=== PATIENT | female | born 1945 | race Caucasian/White ===

== ENCOUNTER 2021-04-02 15:19 | Emergency (ER) | payer OTHER ==
--- OUTSIDE RECORDS SUMMARY | 2021-04-02 15:22 | XMS REPORT | Continuity of Care Document ---
:1945 Author Organization [facility] t Address [address] [place] [address] Dr. Eas[address]. [address] [place] [address] Care Team Providers Name Role Phone Ab GRANADOS Primary Care Physician Javad Whalen MD Attending Clinician Olga ALCARAZ Attending Clinician Unavailable Kevan Rodríguez MD Attending Clinician Kennedi SENIOR CATEGORY MANAGER-C Attending Clinician Ab GRANADOS Attending Clinician Suresh GRANADOS Attending Clinician ANALI Admitting Clinician Unavailable Payers Payer Name Policy Type Policy Effective Date Expiration Date Sour ce Number MEDICAREMEDICARE PART [id number] 2012 Ho ludwin A AND 00:00:00 Baptism [id number] 2011- [place] [id number] 2017 Rowan ston OF 00:00:00 Baptism [id number] 2017 -PresentCommercial Problems Condition Condition Condition Status Onset Resolution Last Treating Co mments Source Name Details Category Date Date Treatment Clinician Date Ganglion Ganglion Disease Active [place] on cyst of cyst of 11-07 Methodi volar volar 00:00: st aspect of aspect of 00 right right wrist wrist Rotator Rotator Disease Active Brent cuff cuff 11-07 Methodi strain, strain, 00:00: st right, right, 00 initial initial encounter encounter HLD HLD Disease Active Brent (hyperlipi (hyperlipi 2-28 Me thodi demia) demia) 00:00: st 00 Abnormal Abnormal Disease Active Overview: Pineda mascorro CT of CT of 01-15 Formattin Methodi brain brain 00:00: g of this st 00 note might be different from the original. 12/07/16 6 mm hyperdens ity in medial left cerebellu m 05/13 per neuro to repeat MRI 03/14 Cervical Cervical Disease Active Overview: Pineda mascorro spondylart spondylart -21 Formatt[place] Methodi hritis hritis 00:00: g of this st 00 note might be different from the original. OSH CT 12/14 : moderate DJDj changes HTN HTN Disease Active Overview: [place] (hypertens (hypertens 01-15 Formattin Methodi ion) ion) 00:00: g of this st note might be different from the original. OSh CT 12/14 prominent DJD changes Allergies, Adverse Reactions, Alerts This patient has no known allergies or adverse reactions. Family History Family Member Diagnosis Comments Start Date Stop Date Source Natural father Pituitary Tumor [place] Baptism Natural mother Cancer [facility] thodist Paternal grandmother Arthritis [place] [facility] Social History Social Habit Start Date Stop Date Quantity Comments Source History of tobacco Current smoker Pineda mascorro Baptism use History [facility] Meth odist Alcohol Binge Cigarettes smoked 2020-12-01 2020-12-01 Claudio Baptism current (pack per 00:00:00 00:00:00 day) - Reported Cigarette 2020-12-01 2020-12-01 Claudio Method ist pack-years 00:00:00 00:00:00 Tobacco use and 2020-12-01 2020-12-01 Never used Claudio Ellis ethodist exposure 00:00:00 00:00:00 Alcohol intake 2020-12-01 2020-12-01 Ex-drinker Brent thodist 00:00:00 00:00:00 (finding) History SDOH 2020-11-15 2020-11-15 4 Claudio Meth odist Alcohol Frequency 00:00:00 00:00:00 History SDOH 2020-11-15 2020-11-15 2 Snyder Meth odist Alcohol Std Drinks 00:00:00 00:00:00 Alcohol Comment 2020-11-15 2020-11-15 a day Claudio vegaodist 00:00:00 00:00:00 Sex [birth year] Claudio vegaodist 00:00:00 00:00:00 Smoking Status Start Date Stop Date Source Former smoker 2020-12-01 00:00:00 2020-12-01 00:00:00 Claudio Baptism Medications Ordered Filled Start Stop Current Ordering Indication Dosage Frequency Signature Comments Components Source Medication Medication Date Date Medication? Clinician (SIG) Name Name BEATRICE Yes Take by Rowan hira ES 11-15 mouth. Methodi BOULARDII 14:57: st (PROBIOTIC, 29 S.BOULARDII , ORAL) ascorbic Yes QD Take by Koki n acid, 11-15 mouth Methodi vitamin C, 14:57: daily. st (VITAMIN C 29 WITH ZULEYMA HIPS) 1000 MG tablet extended release CR tablet omega Yes Take by Brent 3-dha-epa-f 11-15 mouth. Method i denilson oil 14:57: st (FISH OIL) 29 1,000 mg (120 mg-180 mg) capsule lecithin Yes Take by Koki n 1,200 mg 11-15 mouth. Methodi capsule 14:57: st 29 aspirin Yes 81mg QD Take 81 mg [place] (ECOTRIN) 11-15 by mouth Method i 81 MG 14:57: daily. st enteric 29 coated tablet TURMERIC, Yes Brent BULK, MISC 11-15 Methodi 14:57: st 29 cyanocobala Yes 1000ug QD Take 1,000 Snyder min 500 MCG 1-19 mcg by Method i tablet 14:57: mouth st 29 daily. glucosamine Yes Take by Rowantyler iniguez sulfate -19 mouth. Methodi (GLUCOSAMIN 14:57: st E) 500 mg 29 tablet zinc Yes 220mg QD Take 220 Snyder sulfate 1-19 mg by Methodi (ZINCATE) 14:57: mouth st 220 (50) mg 29 daily. capsule multivit-mi Yes Take by Rowan hira ns -19 mouth. Methodi no.5/folic 14:57: st acid 29 (ELDERCAPS ORAL) vit C/vit Yes Take by Stiven on D3/E/zinc/e 11-15 mouth. Method i lderberry 14:57: st (AIRBORNE 29 VITS ZINC ELDERBERRY ORAL) acetaminoph 2020- No acute pain 1{tbl} Q4H Take 1-2 Brent en-codeine 11-15 tablets by Ky lobito (TYLENOL 00:00: 23:[address] WITH 00 :00 every 4 CODEINE #3) (four) 300-30 mg hours as per tablet needed for moderate pain for up to 10 doses .acute pain. acetaminoph 2020- No acute pain 1{tbl} Q4H Take 1-2 Brent en-codeine 11-07 tablets by Ky lobito (TYLENOL 00:00: 00:[address] WITH 00 :00 every 4 CODEINE #3) (four) 300-30 mg hours as per tablet needed for moderate pain for up to 10 doses .acute pain. Vital Signs Vital Name Observation Time Observation Value Comments Source Respiratory rate 2020-12-01 13:25:00 16 /min Kavon Abraham Body height 2020-12-01 13:25:00 160 cm Claudio Abraham Body weight 2020-12-01 13:25:00 55.339 kg Claudio Abraham BMI 2020-12-01 13:25:00 21.61 kg/m2 Snyder Baptism Systolic blood 2020-11-15 11:31:00 117 mm[Hg] Koki Abraham pressure Diastolic blood 2020-11-15 11:31:00 59 mm[Hg] [place] on Baptism pressure Heart rate 2020-11-15 11:31:00 65 /min Claudio Abraham Body temperature 2020-11-15 11:31:00 36.44 Carmenza Kavon Abraham Oxygen saturation in 2020-11-15 11:31:00 95 /min Claudio Abraham Arterial blood by Pulse oximetry Procedures Procedure Date / Time Performed Performing Clinician [facility] SURGICAL PATHOLOGY 2020-11-15 10:25:00 Gray Whalen REQUEST Korsh EXCISION, GANGLION, 2020-11-15 09:34:00 Gray Whalen WRIST Korsh IA AN PERIPHERAL BLOCK 2020-11-15 08:52:50 Omar Rodríguez Baptism PROCEDURE FOR PAIN Kevan XR WRIST 3+ VW RIGHT 2020-11-07 10:31:09 Gray Whalen on Baptism Javad Plan of Care Planned Activity Planned Date Details Comments Source Future Scheduled 2029-01-06 COLONOSCOPY Snyder Test 00:00:00 SCREENING [code = Baptism COLONOSCOPY SCREENING] Future Scheduled 2023-12-24 65+ PNEUMOCOCCAL Postponed from St[facility] on Test 00:00:00 VACCINE (1 of - 2012 Baptism PPSV23) [code = 65+ (Patient Refused) PNEUMOCOCCAL VACCINE (1 of - PPSV23)] Future Scheduled 2022-01-14 STOOL DNA Snyder Test 00:00:00 (COLOGUARD) [code = Methodis t STOOL DNA (COLOGUARD)] Future Scheduled 2021-05-28 INFLUENZA VACCINE [place] Test 00:00:00 [code = INFLUENZA Baptism VACCINE] Future Scheduled 1997 BREAST CANCER Snyder Test 00:00:00 SCREENING [code = Baptism BREAST CANCER SCREENING] Future Scheduled 1997 SHINGLES VACCINES [place] Test 00:00:00 (#1) [code = Baptism SHINGLES VACCINES (#1)] Future Scheduled 1965 Hepatitis C Snyder Test 00:00:00 screening Baptism (procedure) [code = 380273233] Future Scheduled 1959 COVID-19 VACCINE (1) Rowan ston Test 00:00:00 [code = COVID-19 Baptism VACCINE (1)] Future Scheduled 1945 DXA SCAN [code = DXA Rowan ston Test 00:00:00 SCAN] Baptism Encounters Start End Encounter Admission Attending Care Care Encounter Source Date/Time Date/Time Type Type Clinicians Facility Department ID 2020-12-01 2020-12-01 [id number] Brent 00:00:00 00:00:00 GRAY [address] 2020-11-15 2020-11-15 [facility] [id number] Brent 00:00:00 00:00:00 GRAY [address] 2020-11-07 2020-11-07 [facility] [id number] Brent 00:[facility]:00 00:00:00 GRAY [address] 2020-11-07 2020-11-07 Outpatient [facility]NALI [facility] [id number] Brent 00:00:00 00:00:00 GRAY [address] Results Test Description Test Time Test Comments Results Result Comments Source Surgical pathology request 2020-11-17 18:21:26 Test Item Value Reference Range Interpretation Comme nts Case number (test code = [id number]) [id number] Surgical pathology report (test code = See link below for PDF Lab R eport 225) Result status (test code = [id number]) This is Final Report for [id number] Brent MethodistPeripheral [id number] 08:52:50Omar Rodríguez MD 11/15/2020 8:53 AMPeripheral Block Patient Location: Pre-opStart Time: 11/15/2020 8:47 AMEnd Time: 11/15/2020 8:50 AMReason for Block: at surgeon's request, post-op pain management Performed by: anesthesiologistAnesthesiologist: Omar Rodríguez, MDAuthorized by: Omar Rodríguez MD Preprocedure: patient identified, IV checked, site and side verified, risks and benefits discussed, procedure verified, surgical consent complete, patient position confirmed, monitors and equipment checked, pre-op evaluation complete, site marked, timeout performedprior to procedure and coagulation status reviewed Peripheral Nerve Block: Patient Position: Supine Prep: ChloraPrep Monitoring: Blood pressure monitoring, continuous pulse oximetry and heart rateBlock Type: SupraclavicularLaterality: RightInjection Technique: Single injectionProcedures: ultrasound guided and nerve stimulator Ultrasound documentation: Images saved on portable [facility] (See MAR for details): RopivacaineLoss of Twitch: 0.5 mANeedle: Needle Type: Pajunk Needle Gauge: 21 G Needle Length: 10 cmAssessment: Injection Assessment: Visualized needle/local anesthetic surrounding nerve, visualized pertinent vascular structures and nerves, needle tip visualized at all times during injection of medication, intermittent aspiration during local anesthetic administration and no symptoms of intraneural/intravenous injection Paresthesia Pain: None Heart Rate Change: No Slow Fractionated Injection: Yes Block outcome: No apparent complications, patient comfortable and patient tolerated procedure wellNotes: Negative aspiration before and after Supraclavicular single injection.Claudio Abraham
[2021-04-02] MEDS ORDERED: HYDROCODONE/APAP 10/325 TAB ONE (16:03)
--- NOTE | 2021-04-02 16:33 | RAD REPORT ---
EXAM DESCRIPTION: RAD - Ankle Left 3 View -04/02/2021 4:08 pm CLINICAL HISTORY: Left ankle pain FINDINGS: No fracture or dislocation is seen. Bones appear osteoporotic.
--- NOTE | 2021-04-02 17:45 | RAD REPORT ---
EXAM DESCRIPTION: USExtremity Venous Uni Ltd04/02/2021 4:58 pm CLINICAL HISTORY: left leg pain COMPARISON: None. FINDINGS: Left common femoral, superficial femoral, popliteal and posterior tibial veins are compre ssible and demonstrate augmentation. Doppler demonstrates good flow. IMPRESSION: No evidence of deep venous thrombosis involving the left lower extremity.
--- NOTE | 2021-04-02 17:49 | ER ---
Nurse's Notes [facility] Name: Carlita Sanchez Age: 75 yrs Sex: Female : 1945 Arrival Date: 04/02/2021 Time: 15:23 Bed 28 Private MD: Diagnosis: Pain in left ankle and joints of left foot Presentation: 04/02 15:27 Chief complaint: Patient states: "I was just sitting down having lunch when all of a aa5 sudden my ankle started hurting". Pt c/o left ankle pain. Denies injury. Coronavirus screen: At this time, the client does not indicate any symptoms associated with coronavirus-19. Ebola Screen: Patient negative for fever greater than or equal to 101.5 degrees Fahrenheit, and additional compatible Ebola Virus Disease symptoms. Initial Sepsis Screen: Does the patient meet any 2 criteria? No. Patient's initial sepsis screen is negative. Does the patient have a suspected source of infection? No. Patient's initial sepsis screen is negative. Risk Assessment: Do you want to hurt yourself or someone else? Patient reports no desire to harm self or others. Onset of symptoms was April 02, 2021. 15:27 Method Of Arrival: Wheelchair aa5 15:27 Acuity: EVANGELINA 4 aa5 Historical: - Allergies: 15:29 NKDA; aa5 - PMHx: 15:29 None; aa5 - PSHx: 15:29 Hysterectomy; aa5 - Immunization history:: Adult Immunizations unknown. - Social history:: Smoking status: Patient denies any tobacco usage or history of. Screenin:39 Abuse screen: Denies threats or abuse. Denies injuries from another. Nutritional zb screening: No deficits noted. Tuberculosis screening: No symptoms or risk factors identified. Fall Risk No fall in past 12 months (0 pts). No secondary diagnosis (0 pts). No IV (0 pts). Ambulatory Aid- None/Bed Rest/Nurse Assist (0 pts). Gait- Impaired (20 pts.). Mental Status- Oriented to own ability (0 pts). Total Galvez Fall Scale indicates No Risk (0-24 pts). Assessment: 15:37 General: Appears in no apparent distress. uncomfortable, Behavior is calm, cooperative, zb appropriate for age. Pain: Complains of pain in left leg Pain radiates to left leg Pain currently is 8 out of 10 on a pain scale. Quality of pain is described as aching, sharp, tender, tingling, Noted to be grimacing, resistant to movement. Neuro: Level of Consciousness is awake, alert, obeys commands, Oriented to person, place, time, situation. Cardiovascular: Patient's skin is warm and dry. Respiratory: Airway is patent Respiratory effort is even, unlabored, Respiratory pattern is regular, symmetrical. GI: No deficits noted. :. Derm: Skin is intact, is healthy with good turgor. Musculoskeletal: Swelling present in left lateral ankle. 15:39 Reassessment: ICE applied to ankle. zb 17:04 Reassessment: Patient appears in no apparent distress at this time. Patient and/or zb family updated on plan of care and expected duration. Pain level reassessed. Patient is alert, oriented x 3, equal unlabored respirations, skin warm/dry/pink. Patient states feeling better. Vital Signs: 15:28 BP 143 / 74; Pulse 68; Resp 18 S; Temp 97.0(TE); Pulse Ox 96% on R/A; Weight 53.52 kg aa5 (R); Height 5 ft. 3 in. (160.02 cm) (R); Pain 6/10; 17:04 BP 140 / 75; Pulse 58; Resp 18; Pulse Ox 92% on R/A; zb 15:28 Body Mass Index 20.90 (53.52 kg, 160.02 cm) aa5 ED Course: 15:23 Patient arrived in ED. rg4 15:27 Triage completed. aa5 15:28 Arm band placed on. aa5 15:31 Makayla Luis, LISSA is Primary Nurse. zb 15:31 Nelson Talamantes NP is PHCP. pm1 15:31 Real Carvajal MD is Attending Physician. pm1 15:39 Patient has correct armband on for positive identification. Placed in gown. Bed in low zb position. Adult w/ patient. Pulse ox on. NIBP on. 16:09 Ankle Left 3 View XRAY In Process Unspecified. EDMS 16:58 Extremity Venous Uni Ltd US In Process Unspecified. EDMS 17:05 Ice pack to injury. zb 17:56 No provider procedures requiring assistance completed. Patient did not have IV access zb during this emergency room visit. Administered Medications: 15:56 Drug: Alstead (HYDROcodone-acetaminophen) 10 mg-325 mg 1 tabs Route: PO; zb 17:00 Follow up: Response: No adverse reaction; Pain is decreased; RASS: Alert and Calm (0) zb 17:55 Drug: Zofran (Ondansetron) 4 mg Route: PO; zb 17:56 Follow up: Response: Medication administered at discharge. zb Outcome: 17:49 Discharge ordered by MD. pm1 17:56 Discharged to home via wheelchair. zb 17:56 Condition: stable 17:56 Discharge instructions given to patient, family, Instructed on discharge instructions, follow up and referral plans. medication usage, Demonstrated understanding of instructions, follow-up care, medications, Prescriptions given X 2. 17:56 Patient left the ED. zb Signatures: Dispatcher [employer] EDMS Merlene Cosby RN RN [email or web address] Nelson Talamantes NP DIRECTOR pm1 Shameka Beth 4 Makayla Luis RN RN zb
--- NOTE | 2021-04-02 17:49 | EDPHYS ---
Physician Documentation [facility] Name: Carlita Sanchez Age: 75 yrs Sex: Female : 1945 Arrival Date: 04/02/2021 Time: 15:23 Bed 28 Private MD: ED Physician Real Carvajal HPI: 04/02 15:41 This 75 yrs old Female presents to ER via Wheelchair with complaints of Ankle pm1 Pain. 15:41 Onset: The symptoms/episode began/occurred today. pm1 15:41 The patient presents with pain, that is acute, swelling. The complaints affect the left pm1 ankle. Context: The problem was sustained at a restaurant, resulted from an unknown cause, The mechanism of injury is unknown. the patient is able to ambulate. Associated signs and symptoms: Pertinent positives: calf tenderness, Pertinent negatives: fever, numbness, tingling. Modifying factors: The symptoms are alleviated by nothing, the symptoms are aggravated by movement. Severity of symptoms: in the emergency department the symptoms are unchanged. The patient has experienced a previous episode, some similarity to prior DVT. The patient has not recently seen a physician. Historical: - Allergies: 15:29 NKDA; aa5 - PMHx: 15:29 None; aa5 - PSHx: 15:29 Hysterectomy; aa5 - Immunization history:: Adult Immunizations unknown. - Social history:: Smoking status: Patient denies any tobacco usage or history of. ROS: 15:41 Constitutional: Negative for fever, chills, and weight loss, Cardiovascular: Negative pm1 for chest pain, palpitations, and edema, Respiratory: Negative for shortness of breath, cough, wheezing, and pleuritic chest pain. 15:41 Skin: Negative for injury, rash, and discoloration, Neuro: Negative for headache, weakness, numbness, tingling, and seizure. 15:41 MS/extremity: Positive for pain, swelling, tenderness, of the left lateral ankle, Negative for decreased range of motion, deformity. 15:41 All other systems are negative. Exam: 15:41 Constitutional: This is a well developed, well nourished patient who is awake, alert, pm1 and in no acute distress. Head/Face: Normocephalic, atraumatic. 15:41 Skin: Warm, dry with normal turgor. Normal color with no rashes, no lesions, and no evidence of cellulitis. 15:41 Cardiovascular: Exam negative for acute changes, Rate: normal, Rhythm: regular, Pulses: no pulse deficits are appreciated. 15:41 Respiratory: Exam negative for acute changes, respiratory distress, shortness of breath. 15:41 Musculoskeletal/extremity: Extremities: grossly normal except: noted in the left lateral ankle: swelling, tenderness, There is no evidence of decreased ROM, deformity, Calves: have equal circumference, are tender, on left. 15:41 Neuro: Exam negative for acute changes, Orientation: is normal, Mentation: is normal, Motor: moves all fours, strength is normal. Vital Signs: 15:28 BP 143 / 74; Pulse 68; Resp 18 S; Temp 97.0(TE); Pulse Ox 96% on R/A; Weight 53.52 kg aa5 (R); Height 5 ft. 3 in. (160.02 cm) (R); Pain 6/10; 17:04 BP 140 / 75; Pulse 58; Resp 18; Pulse Ox 92% on R/A; zb 15:28 Body Mass Index 20.90 (53.52 kg, 160.02 cm) aa5 MDM: 15:34 Patient medically screened. [facility] 17:48 Data reviewed: vital signs. Counseling: I had a detailed discussion with the patient pm1 and/or guardian regarding: the historical points, exam findings, and any diagnostic results supporting the discharge/admit diagnosis, radiology results, the need for outpatient follow up, a family practitioner, a orthopedic surgeon, to return to the emergency department if symptoms worsen or persist or if there are any questions or concerns that arise at home. 04/02 15:38 Order name: Extremity Venous Uni Ltd US; Complete Time: 17:48 pm1 04/02 15:38 Order name: Ankle Left 3 View XRAY; Complete Time: 17:16 pm1 Administered Medications: 15:56 Drug: [place]merer (HYDROcodone-acetaminophen) 10 mg-325 mg 1 tabs Route: PO; zb 17:00 Follow up: Response: No adverse reaction; Pain is decreased; RASS: Alert and Calm (0) zb 17:55 Drug: Zofran (Ondansetron) 4 mg Route: PO; zb 17:56 Follow up: Response: Medication administered at discharge. zb Disposition: 04/02/21 17:49 Discharged to Home. Impression: Pain in left ankle and joints of left foot. - Condition is Stable. - Discharge Instructions: Arthritis, Ankle Pain. - Prescriptions for Zofran ODT 4 mg Oral tablet,disintegrating - place 1 tablet by TRANSLINGUAL route every 8 hours As needed; 15 tablet. Tylenol- Codeine #3 300-30 mg Oral Tablet - take 2 tablet by ORAL route every 6 hours As needed; 20 tablet. - Medication Reconciliation Form, Thank You Letter, Antibiotic Education, Prescription Opioid Use form. - Follow up: Emergency Department; When: As needed; Reason: Worsening of condition. Follow up: Private Physician; When: 2 - 3 days; Reason: Recheck today's complaints, Continuance of care, Re-evaluation by your physician. - Problem is new. - Symptoms have improved. Addendum: 04/04/2021 07:48 Co-signature as Attending Physician, Real Carvajal MD I agree with the assessment and c souza plan of care. Signatures: Dispatcher [employer] EDReal Kenney MD MD cha Calderon, Audri, RN RN aa5 Nelson Talamantes, EMELINA FINISHED CIGAR MAKER pm1 Makayla Luis RN RN zb Corrections: (The following items were deleted from the chart) 04/02 17:55 17:51 Royal wrap-joint ordered. pm1 zb 17:56 17:49 04/02/2021 17:49 Discharged to Home. Impression: Pain in left ankle and joints of zb left foot. Condition is Stable. Forms are Medication Reconciliation Form, Thank You Letter, Antibiotic Education, Prescription Opioid Use. Follow up: Emergency Department; When: As needed; Reason: Worsening of condition. Follow up: Private Physician; When: 2 - 3 days; Reason: Recheck today's complaints, Continuance of care, Re-evaluation by your physician. Problem is new. Symptoms have improved. pm1
[2021-04-02 18:02] VITALS: TEMP 97
[2021-04-02 18:03] VITALS: BP 140/75; O2SAT 92
[2021-04-02] MEDS ORDERED: ONDANSETRON 4 MG (ODT) TAB ONE (18:08)
== END 2021-04-02 17:56 | disposition home or self-care (01) ==
LOC: ER 15:19
DX: M25.572 Pain in left ankle and joints of left foot (principal)
CPT/HCPCS: 93971; 99284

== ENCOUNTER 2024-06-28 09:58 | Emergency (ER) | payer OTHER ==
--- NOTE | 2024-06-28 11:22 | RAD REPORT ---
EXAM DESCRIPTION: CT - Head Brain Wo Cont - 06/28/2024 10:54 am CLINICAL HISTORY: TRAUMA Headache, trauma, head injury COMPARISON: Facial Bones W/ Mpr dated 06/28/2024; Head Brain Wo Cont dated 05/12/2016 TECHNIQUE: All CT scans are performed using dose optimization technique as appropriate and may inclu de automated exposure control or mA/KV adjustment according to patient size. FINDINGS: No intracranial hemorrhage, hydrocephalus or extra-axial fluid collection.Mild generalized brain atrophy is present with mild periventricular and deep white matter chronic microvascular ische ronit changes.No areas of brain edema or evidence of midline shift. Mild polypoid mucosal thickening right maxillary antrum. The paranasal sinuses and mastoids otherwise clear. The calvarium is intact. IMPRESSION: No acute intracranial abnormality.
--- NOTE | 2024-06-28 11:23 | RAD REPORT ---
EXAM DESCRIPTION: CT - CTFB CLINICAL HISTORY: TRAUMA Trauma facial pain and swelling COMPARISON: No comparisons TECHNIQUE: Axial 2 mm thick images of the face were obtained with sagittal and coronal reconstructio n images. All CT scans are performed using dose optimization technique as appropriate and may include automated exposure control or mA/KV adjustment according to patient size. FINDINGS: No acute facial bone fracture is seen.The mandible is intact. The globes and orbital contents are grossly unremarkable.Mild polypoid mucosal thickening inferior ri ght maxillary antrum. The paranasal sinuses and mastoids are otherwise clear IMPRESSION: Negative for facial bone fracture.
--- NOTE | 2024-06-28 11:41 | ER ---
Nurse's Notes [facility] Name: Carlita Sanchez Age: 79 yrs Sex: Female : 1945 Arrival Date: 06/28/2024 Time: 09:58 Bed 15 Private MD: Diagnosis: Facial contusion, closed head injury Presentation: 06/28 10:25 Chief complaint: Patient states: she fell face first onto concrete Saturday06/24/24. ap3 patient denies any pain, but is concerned with bruising that has since developed after the fall. Coronavirus screen: At this time, the client does not indicate any symptoms associated with coronavirus-19. Ebola Screen: No symptoms or risks identified at this time. Initial Sepsis Screen: Does the patient meet any 2 criteria? No. Patient's initial sepsis screen is negative. Does the patient have a suspected source of infection? No. Patient's initial sepsis screen is negative. Risk Assessment: Do you want to hurt yourself or someone else? Patient reports no desire to harm self or others. Onset of symptoms was June 24, 2024. 10:25 Method Of Arrival: Ambulatory ap3 10:25 Acuity: EVANGELINA 3 ap3 Triage Assessment: 10:26 General: Appears in no apparent distress. Behavior is calm, cooperative, appropriate ap3 for age. Pain: Denies pain. Neuro: Level of Consciousness is awake, alert, obeys commands, Oriented to person, place, time, situation, Appropriate for age. Cardiovascular: Patient's skin is warm and dry. Respiratory: Airway is patent Respiratory effort is even, unlabored, Respiratory pattern is regular, symmetrical. Derm: Bruising that is dark purple, green, yellow, on forehead, left cheek and left eye. Historical: - Allergies: 10:26 NKDA; ap3 - Home Meds: 10:26 None [Active]; ap3 - PMHx: 10:26 None; ap3 - Immunization history:: Client reports having NOT received the Covid vaccine. Last tetanus immunization: < 5 years ago. - Infectious Disease History:: Denies. - Social history:: Smoking status: Patient denies any tobacco usage or history of. Screenin:26 [facility] ED Fall Risk Assessment (Adult) History of falling in the last 3 months, kc6 including since admission Yes- single mechanical fall (1 pt) Confusion or Disorientation No (0 pts) Intoxicated or Sedated No (0 pts) Impaired Gait No (0 pts) Mobility Assist Device Used No (0 pt) Altered Elimination No (0 pt) Score/Fall Risk Level 0 - 2 = Low Risk. Abuse screen: Denies threats or abuse. Denies injuries from another. Nutritional screening: No deficits noted. Tuberculosis screening: No symptoms or risk factors identified. Assessment: 10:26 General: Appears in no apparent distress. comfortable, well groomed, well developed, kc6 Behavior is calm, cooperative, appropriate for age. Pain: Complains of pain in face. Neuro: Level of Consciousness is awake, alert, obeys commands, Oriented to person, place, time, situation, Appropriate for age. Cardiovascular: Capillary refill < 3 seconds. Respiratory: Airway is patent Trachea midline Respiratory effort is even, unlabored, Respiratory pattern is regular, symmetrical. GI: No signs and/or symptoms were reported involving the gastrointestinal system. : No signs and/or symptoms were reported regarding the genitourinary system. EENT: No signs and/or symptoms were reported regarding the EENT system. Derm: Skin is intact, is healthy with good turgor, is fragile, is thin, Skin is normal, Bruising that is dark purple, on left eye and left cheek and forehead. Musculoskeletal: No signs and/or symptoms reported regarding the musculoskeletal system. Circulation, motion, and sensation intact. Capillary refill < 3 seconds, Range of motion: intact in all extremities. 11:42 Reassessment: Patient appears in no apparent distress at this time. No changes from kc6 previously documented assessment. Patient and/or family updated on plan of care and expected duration. Pain level reassessed. Patient is alert, oriented x 3, equal unlabored respirations, skin warm/dry/pink. Vital Signs: 10:25 BP 159 / 64; Pulse 77; Resp 17; Temp 98.3; Pulse Ox 97% ; Weight 47.17 kg; Height 5 ft. ap3 2 in. ; Pain 0/10; 11:42 BP 154 / 62; Pulse 78; Resp 17 S; Pulse Ox 100% on R/A; kc6 10:25 Body Mass Index 19.02 (47.17 kg, 157.48 cm) ap3 10:25 Pain Scale: Adult ap3 ED Course: 10:00 Patient arrived in ED. im 10:01 Duyen Sanders MD is Attending Physician. sp3 10:21 Imani Tanner, RN is Primary Nurse. kc6 10:25 Arm band placed on. kc6 10:26 Triage completed. ap3 10:26 Patient has correct armband on for positive identification. Bed in low position. Call kc6 light in reach. Side rails up X 1. Pulse ox on. NIBP on. Pillow given. 10:55 CT Head Brain wo Cont In Process Unspecified. EDMS 10:56 CT Facial Bones W/O Con In Process Unspecified. EDMS 11:47 No provider procedures requiring assistance completed. Patient did not have IV access kc6 during this emergency room visit. Administered Medications: No medications were administered Medication: 11:48 VIS not applicable for this client. kc6 Outcome: 11:40 Discharge ordered by . sp3 11:47 Discharged to home ambulatory, with significant other, kc6 11:47 Condition: good 11:47 Discharge instructions given to patient, significant other, Instructed on discharge instructions, follow up and referral plans. Demonstrated understanding of instructions, follow-up care, 11:48 Patient left the ED. kc6 Signatures: Dispatcher [employer] EDMS Joceline Mendieta RN RN ap3 Duyen Sanders MD MD sp3 Imani Tanner, LISSA RN kc6 Jacki Fox im
--- NOTE | 2024-06-28 11:41 | EDPHYS ---
Physician Documentation [facility] Name: Calrita Sanchez Age: 79 yrs Sex: Female : 1945 Arrival Date: 06/28/2024 Time: 09:58 Bed 15 Private MD: ED Physician Duyen Sanders HPI: 06/28 10:43 79-year-old female with no past medical history presents for facial contusion and sp3 ecchymoses secondary to a mechanical ground-level fall that she sustained 4 days ago on Saturday due to a trip and fall. She has had no symptoms but is here due to the increasing discoloration particularly on the left underside of the eye. She currently denies headache, prior loss of consciousness, neck pain, chest pain, shortness of breath, neurological deficit, speech abnormality, memory loss, vomiting, nausea, or any other signs or symptoms on ROS at this time.. Historical: - Allergies: 10:26 NKDA; ap3 - Home Meds: 10:26 None [Active]; ap3 - PMHx: 10:26 None; ap3 - Immunization history:: Client reports having NOT received the Covid vaccine. Last tetanus immunization: < 5 years ago. - Infectious Disease History:: Denies. - Social history:: Smoking status: Patient denies any tobacco usage or history of. ROS: 10:44 Constitutional: Negative for fever, chills, and weight loss, Neck: Negative for injury, sp3 pain, and swelling, Cardiovascular: Negative for chest pain, palpitations, and edema, Respiratory: Negative for shortness of breath, cough, wheezing, and pleuritic chest pain, Abdomen/GI: Negative for abdominal pain, nausea, vomiting, diarrhea, and constipation, MS/Extremity: Negative for injury and deformity, Neuro: Negative for headache, weakness, numbness, tingling, and seizure, Psych: Negative for depression, anxiety, suicide ideation, homicidal ideation, and hallucinations, Allergy/Immunology: Negative for hives, rash, and allergies, Endocrine: Negative for neck swelling, polydipsia, polyuria, polyphagia, and marked weight changes, Hematologic/Lymphatic: Negative for swollen nodes, abnormal bleeding, and unusual bruising, 10:44 All other systems are negative, Exam: 10:44 Constitutional: This is a well developed, well nourished patient who is awake, alert, sp3 and in no acute distress. Eyes: Pupils equal round and reactive to light, extra-ocular motions intact. Lids and lashes normal. Conjunctiva and sclera are non-icteric and not injected. Cornea within normal limits. Periorbital areas with no swelling, redness, or edema. ENT: Nares patent. No nasal discharge, no septal abnormalities noted. External auditory canals are clear. Oropharynx with no redness, swelling, or masses, exudates, or evidence of obstruction, uvula midline. Mucous membranes moist. Neck: Trachea midline, no thyromegaly or masses palpated, and no cervical lymphadenopathy. Supple, full range of motion without nuchal rigidity, or vertebral point tenderness. No Meningismus. Chest/axilla: Normal chest wall appearance and motion. Nontender with no deformity. No lesions are appreciated. Cardiovascular: Regular rate and rhythm with a normal S1 and S2. No gallops, murmurs, or rubs. Normal PMI, no JVD. No pulse deficits. Respiratory: Lungs have equal breath sounds bilaterally, clear to auscultation and percussion. No rales, rhonchi or wheezes noted. No increased work of breathing, no retractions or nasal flaring. Abdomen/GI: Soft, non-tender, with normal bowel sounds. No distension or tympany. No guarding or rebound. No evidence of tenderness throughout. Skin: Warm, dry with normal turgor. Normal color with no rashes, no lesions, and no evidence of cellulitis. MS/ Extremity: Pulses equal, no cyanosis. Neurovascular intact. Full, normal range of motion. Neuro: Awake and alert, GCS 15, oriented to person, place, time, and situation. Cranial nerves II-XII grossly intact. Motor strength 5/5 in all extremities. Sensory grossly intact. Cerebellar exam normal. Normal gait. Psych: Awake, alert, with orientation to person, place and time. Behavior, mood, and affect are within normal limits. 10:44 Head/face: Ecchymoses present across forehead bilaterally, bilateral eyes left greater than right with periorbital ecchymoses particularly the left nasolabial fold. Eye exam is normal including anterior chamber. Vision is normal. Cervical exam is also normal.. Vital Signs: 10:25 BP 159 / 64; Pulse 77; Resp 17; Temp 98.3; Pulse Ox 97% ; Weight 47.17 kg; Height 5 ft. ap3 2 in. ; Pain 0/10; 11:42 BP 154 / 62; Pulse 78; Resp 17 S; Pulse Ox 100% on R/A; kc6 10:25 Body Mass Index 19.02 (47.17 kg, 157.48 cm) ap3 10:25 Pain Scale: Adult ap3 MDM: 10:20 Patient medically screened. sp3 10:45 Data reviewed: vital signs, nurses notes, radiologic studies. ED course: 79-year-old sp3 female with mechanical ground-level fall 4 days ago and now with ecchymosis to face here for evaluation. Am at highly concerned for intracranial hemorrhage, or other cortical pathology given her neurological status and lack of pain symptoms. Will obtain CT scan of the head and CT scan of the facial bones to ensure no other injury. If workup negative, we will safely discharge patient home with general precautions and follow-up to PCP.. 11:39 ED course: CT scans are negative. We will safely discharge patient home.. sp3 06/28 10:29 Order name: CT Head Brain wo Cont; Complete Time: 11:33 sp3 06/28 10:29 Order name: CT Facial Bones W/O Con; Complete Time: 11:33 sp3 Administered Medications: No medications were administered Disposition Summary: 06/28/24 11:40 Discharge Ordered Notes: Location: Home sp3 Condition: Stable sp3 Diagnosis - Facial contusion, closed head injury sp3 Followup: sp3 - With: Private Physician - When: As needed - Reason: Continuance of care Discharge Instructions: - Discharge Summary Sheet sp3 - Facial or Scalp Contusion sp3 Forms: - Medication Reconciliation Form sp3 - Antibiotic Education sp3 - Prescription Opioid Use sp3 - Patient Portal Instructions sp3 - Leadership Thank You Letter sp3 Signatures: Dispatcher [employer] Joceline Damon RN RN ap3 Duyen Sanders MD MD sp3 Imani Tanner RN RN kc6
[2024-06-28 11:53] VITALS: TEMP 98.3
[2024-06-28 11:55] VITALS: BP 154/62; O2SAT 100
== END 2024-06-28 11:48 | disposition home or self-care (01) ==
LOC: ER 09:58
DX: S00.83XA Contusion of other part of head, initial encounter (principal); S09.90XA Unspecified injury of head, initial encounter; W01.0XXA Fall on same level from slipping, tripping and stumbling without subsequent striking against object, initial encounter
CPT/HCPCS: 70450; 70486; 76377; 99283